=== PATIENT | female | born 1990 | race African-American/Black ===

== ENCOUNTER 2017-12-12 04:27 | Emergency (ER) | payer OTHER ==
[2017-12-12 04:44] VITALS: BP 129/82; PULSE 94; TEMP 97.9; BMI 19.2
[2017-12-12] MEDS ORDERED: LORATADINE 10 MG TABLET PO ONE (04:44)
[2017-12-12] MEDS ORDERED: ALBUTEROL SO4 0.083% IH SOL 2.5 MG/3 ML VIAL.NEB. NEB ONE ×3 (04:44→04:48)
--- NOTE | 2017-12-12 04:44 | PDOC ---
History of Present Illness - General History Source: Patient Exam Limitations: No Limitations - History of Present Illness Initial Comments: 12/12/17 05:05 The patient is a 29 year old female with past medical history of asthma (last attack many years ago) presents to the emergency department with asthma exacerbation. The patient reports for the past 2 days she's been experiencing chest tightness and wheezing, nonradiating, on relieving. The patient states she had a asthma attack many years ago, denies hospitalization or intubation Denies the use of steroid. Denies fever, chills. Denies nausea, vomiting, diarrhea or constipation. LMP: Last week Allergies: Shellfish. Patient is unaware if she had seasonal allergies. Social history: Denies any history of smoking, alcohol use or substance use. <Karen Mendoza - Last Filed: 12/12/17 05:06> - General History Source: Patient <Hector Min - Last Filed: 12/12/17 05:18> - General Stated Complaint: ASTHMA/DIFFICULTY BREATHING Time Seen by Provider: 12/12/17 04:40 Past History <Karen Mendoza - Last Filed: 12/12/17 05:06> - Past Medical History Asthma: Yes (no inhalers in years) COPD: No - Suicide/Smoking/Psychosocial Hx Smoking History: Never smoked <Hector Min - Last Filed: 12/12/17 05:18> - Past Medical History Allergies/Adverse Reactions: Allergies Allergy/AdvReac Type Severity Reaction Status Date / Time shellfish derived Allergy Verified 12/12/17 04:44 Home Medications: Ambulatory Orders Albuterol 0.083% Nebulizer Steffanie [Ventolin 0.083% Nebulizer Soln -] 1 neb NEB Q6H #30 vial 12/12/17 Loratadine [Claritin] 10 mg PO DAILY #30 tablet 12/12/17 Review of Systems - Review of Systems Able to Perform ROS?: Yes Comments:: 12/12/17 05:04 CONSTITUTIONAL: Absent: fever, chills, diaphoresis, generalized weakness, malaise, loss of appetite HEENT: Absent: rhinorrhea, nasal congestion, throat pain, throat swelling, difficulty swallowing, mouth swelling, ear pain, eye pain, visual Changes CARDIOVASCULAR: Absent: chest pain, syncope, palpitations, irregular heart rate, lightheadedness , peripheral edema RESPIRATORY: (+)Chest tightness, wheezing and productive cough. Absent: shortness of breath, dyspnea with exertion, orthopnea, stridor, hemoptysis GASTROINTESTINAL: Absent: abdominal pain, abdominal distension, nausea, vomiting, diarrhea, constipation, melena, hematochezia GENITOURINARY: Absent: dysuria, frequency, urgency, hesitancy, hematuria, flank pain, genital pain MUSCULOSKELETAL: Absent: myalgia, arthralgia, joint swelling SKIN: Absent: rash, itching, pallor HEMATOLOGIC/IMMUNOLOGIC: Absent: easy bleeding, easy bruising, lymphadenopathy, frequent infections ENDOCRINE: Absent: unexplained weight gain, unexplained weight loss, heat intolerance, cold intolerance NEUROLOGIC: Absent: headache, focal weakness or paresthesias, dizziness, unsteady gait, seizure, mental status changes, bladder or bowel incontinence PSYCHIATRIC: Absent: anxiety, depression, suicidal or homicidal ideation, hallucinations. <Karen Mendoza - Last Filed: 12/12/17 05:06> *Physical Exam - Vital Signs Last Vital Signs Temp Pulse Resp BP Pulse Ox 97.9 F 94 H 22 129/82 95 12/12/17 04:43 12/12/17 04:43 12/12/17 04:43 12/12/17 04:43 12/12/17 04:43 - Physical Exam Comments: 12/12/17 05:04 GENERAL: Well developed, well nourished. Awake and alert. No acute distress. HEENT: Normocephalic, atraumatic. PERRLA, EOMI. No conjunctival pallor. Sclera are non- icteric. Moist mucous membranes. Oropharynx is clear. NECK: Supple. Full ROM. No JVD. Carotid pulses 2+ and symmetric, without bruits. No thyromegaly. No lymphadenopathy. CARDIOVASCULAR: Regular rate and rhythm. No murmurs, rubs, or gallops. Distal pulses are 2+ and symmetric. PULMONARY: (+) Scattered wheezing heard at all lung jean. Lungs clear to auscultation bilaterally. No rales or rhonchi. ABDOMINAL: Soft. Non-tender. Non-distended. No rebound or guarding. No organomegaly. Normoactive bowel sounds. MUSCULOSKELETAL Normal range of motion at all joints. No bony deformities or tenderness. No CVA tenderness. EXTREMITIES: No cyanosis. No clubbing. No edema. No calf tenderness. SKIN: Warm and dry. Normal capillary refill. No rashes. No jaundice. NEUROLOGICAL: Alert, awake, appropriate. Cranial nerves 2-12 intact. No deficits to light touch and temperature in face, upper extremities and lower extremities. No motor deficits in the in face, upper extremities and lower extremities. Normoreflexic in the upper and lower extremities. Normal speech. Toes are down- going bilaterally. Gait is normal without ataxia. PSYCHIATRIC: Cooperative. Good eye contact. Appropriate mood and affect. <Karen Mendoza - Last Filed: 12/12/17 05:06> - Vital Signs Last Vital Signs Temp Pulse Resp BP Pulse Ox 97.9 F 94 H 22 129/82 95 12/12/17 04:43 12/12/17 04:43 12/12/17 04:43 12/12/17 04:43 12/12/17 04:43 <Hector Min - Last Filed: 12/12/17 05:18> ED Treatment Course - Medications Given in the ED: ED Medications Discontinued Medications Generic Name Dose Route Start Last Admin Trade Name Freq PRN Reason Stop Dose Admin Albuterol Sulfate 1 amp 12/12/17 04:44 12/12/17 04:53 Ventolin 0.083% Nebulizer Soln - NEB 12/12/17 04:45 1 amp ONCE ONE Administration Albuterol Sulfate 1 amp 12/12/17 04:44 12/12/17 04:53 Ventolin 0.083% Nebulizer Soln - NEB 12/12/17 04:45 1 amp ONCE ONE Administration Loratadine 10 mg 12/12/17 04:44 12/12/17 04:53 Claritin - PO 12/12/17 04:45 10 mg ONCE ONE Administration <Karen Mendoza - Last Filed: 12/12/17 05:06> Medical Decision Making - Medical Decision Making 12/12/17 05:06 Documentation prepared by Karen Mendoza, acting as medical educator for Hector Min DO. <Karen Mendoza - Last Filed: 12/12/17 05:06> - Medical Decision Making 12/12/17 05:17 Dr. Min: The scribe's documentation has been prepared under my direction and personally reviewed by me in its entirery. I confirm that the note above accurately reflects all work, treatment, procedures, and medical decision making performed by me. <Hector Min - Last Filed: 12/12/17 05:18> *DC/Admit/Observation/Transfer <Karen Mendoza - Last Filed: 12/12/17 05:06> - Discharge Dispostion Decision to Admit order: No <Hector Min - Last Filed: 12/12/17 05:18> Diagnosis at time of Disposition: Asthma Qualifiers: Asthma severity: mild Asthma persistence: unspecified Asthma complication type : uncomplicated Qualified Code(s): J45.909 - Unspecified asthma, uncomplicated - Discharge Dispostion Disposition: HOME Condition at time of disposition: Stable - Prescriptions Prescriptions: Albuterol 0.083% Nebulizer Steffanie [Ventolin 0.083% Nebulizer Soln -] 1 neb NEB Q6H #30 vial Loratadine [Claritin] 10 mg PO DAILY #30 tablet - Referrals Referrals: Jhony Mehta MD, MD [Staff Physician] - - Patient Instructions Printed Discharge Instructions: DI for Asthma -- Adult Additional Instructions: Please follow up with your doctor for re-evaluation and to get a nebulizer machine. Take a Claritin Daily to control allergies. REturn if any problems. - Post Discharge Activity Forms/Work/School Notes: Back to Work
[2017-12-12] MEDS ORDERED: LORATADINE 10 MG TABLET ONE (04:49)
== END 2017-12-12 06:04 | disposition home or self-care (01) ==
LOC: JER 04:27
PROC: 3E0F7GC Introduction of Other Therapeutic Substance into Respiratory Tract, Via Natural or Artificial Opening (ICD-10-PCS; principal; 2017-12-12)
PROC: 3E0F7GC Introduction of Other Therapeutic Substance into Respiratory Tract, Via Natural or Artificial Opening (ICD-10-PCS; 2017-12-12)
DX: J45.909 Unspecified asthma, uncomplicated (principal)
CPT/HCPCS: 99281-25

== ENCOUNTER 2019-05-30 22:45 | Emergency (ER) | payer SELFPAY ==
[2019-05-30 22:52] VITALS: BP 118/79; PULSE 85; TEMP 99.4; BMI 20.5
--- NOTE | 2019-05-30 23:21 | PDOC ---
*Physical Exam - Vital Signs Last Vital Signs Temp Pulse Resp BP Pulse Ox 99.4 F 85 19 118/79 100 05/30/19 22:48 05/30/19 22:48 05/30/19 22:48 05/30/19 22:48 05/30/19 22:48 Medical Decision Making - Medical Decision Making 05/30/19 23:21 Patient seen by the advanced practice provider under my direct supervision. Ancillary testing reviewed as necessary. I agree with plan as outlined by the advanced practice provider. Discharge - Discharge Information Problems reviewed: Yes Clinical Impression/Diagnosis: Pharyngitis Qualifiers: Pharyngitis/tonsillitis etiology: unspecified etiology Qualified Code(s): J02.9 - Acute pharyngitis, unspecified Condition: Stable Disposition: HOME - Additional Discharge Information Prescriptions: Amoxicillin - [Amoxicillin 500mg Capsule -] 500 mg PO BID #20 capsule - Follow up/Referral - Patient Discharge Instructions Additional Instructions: Take amoxicillin as prescribed. Salt water garggles. Throw away your toothbrush in 3 days and start using a new toothbrush. No sharing of drinks, utensils or toothbrushes. Take Motrin as directed by chemical instrumentation officer's instructions. Return to ED for worsening fevers, worsening sore throat, chest pain, shortness of breath or any other concerns. - Post Discharge Activity
[2019-05-30] MEDS ORDERED: DEXAMETHASONE LIQUID 0.5 MG/5 ML PO ONE (23:22)
--- NOTE | 2019-05-30 23:28 | PDOC ---
History of Present Illness - General Chief Complaint: Sore Throat Stated Complaint: SORE THROAT Time Seen by Provider: 05/30/19 23:11 History Source: Patient Exam Limitations: No Limitations - History of Present Illness Initial Comments: 05/30/19 23:53 HISTORY OF PRESENT ILLNESS: Is a 28-year-old woman who denies medical history presents to the emergency department with right-sided throat pain for the past 4 days. Patient has been using salt water gargles and taking antipruritic medication at home. Patient reports the pressure has slightly progressed but denies any vocal changes, difficulty swallowing, drooling headaches, ear pain. No recent travel or sick contacts. PAST MEDICAL HISTORY: Denies past medical history SURGICAL HISTORY: Denies ALLERGIES: No known drug allergies REVIEW OF SYSTEMS General/Constitutional: Denies fever or chills. Denies weakness, weight change. HEENT: See HPI Cardiovascular: Denies chest pain or shortness of breath. Respiratory: Denies cough, wheezing, or hemoptysis. Gastrointestinal: Denies nausea, vomiting, diarrhea or constipation. Denies rectal bleeding. Genitourinary: Denies dysuria, frequency, or change in urination. Musculoskeletal: Denies joint or muscle swelling or pain. Denies neck or back pain. Skin and breasts: Denies rash or easy bruising. Neurologic: Denies headache, vertigo, loss of consciousness, or loss of sensation. Psychiatric: Denies depression or anxiety. Endocrine: Denies increased thirst. Denies abnormal weight change. Hematologic/Lymphatic: Denies anemia, easy bleeding, or history of blood clots. Allergic/Immunologic: Denies hives or skin allergy. Denies latex allergy. PHYSICAL EXAM General Appearance: Well-appearing, appropriately dressed. No apparent distress , no intoxication. HEENT: EOMI, PERRLA, normal ENT inspection, normal voice, TMs normal. No conjunctival pallor. No photophobia, scleral icterus. Oropharynx erythematous with 2+ tonsils present. Exudate present to the right tonsil. Uvula is midline. Neck: Supple. Trachea midline. No tenderness, rigidity, carotid bruit, stridor , lymphadenopathy, or thyromegaly. Respiratory/Chest: Lungs CTAB. No shortness of breath, chest tenderness, respiratory distress, accessory muscle use. No crackles, rales, rhonchi, stridor , wheezing, dullness Cardiovascular: RRR. S1, S2. No JVD, murmur, bradycardia, tachycardia. Past History - Past Medical History Allergies/Adverse Reactions: Allergies Allergy/AdvReac Type Severity Reaction Status Date / Time shellfish derived Allergy Verified 05/30/19 23:00 Home Medications: Ambulatory Orders Albuterol 0.083% Nebulizer Steffanie [Ventolin 0.083% Nebulizer Soln -] 1 neb NEB Q6H #30 vial 12/12/17 Loratadine [Claritin] 10 mg PO DAILY #30 tablet 12/12/17 Amoxicillin - [Amoxicillin 500mg Capsule -] 500 mg PO BID #20 capsule 05/30/19 Asthma: Yes (no inhalers in years) COPD: No - Immunization History Immunization Up to Date: Yes - Psycho Social/Smoking Cessation Hx Smoking History: Never smoked Hx Alcohol Use: No (socially) Drug/Substance Use Hx: No *Physical Exam - Vital Signs Last Vital Signs Temp Pulse Resp BP Pulse Ox 99.4 F 85 19 118/79 100 05/30/19 22:48 05/30/19 22:48 05/30/19 22:48 05/30/19 22:48 05/30/19 22:48 Medical Decision Making - Medical Decision Making 05/30/19 23:52 A/P: 28-year-old woman with right-sided throat pain for 4 days +2 tonsillar swelling present Uvula is midline No peritonsillar abscess is noted Right tonsillar exudate is present Tender anterior cervical lymphadenopathy noted Halitosis present Given physical exam high likelihood of streptococcal infection. I will treat patient empirically with amoxicillin 500 twice daily for the next 10 days. Discharge instructions have been provided with the patient was verbalized understanding. Discharge - Discharge Information Problems reviewed: Yes Clinical Impression/Diagnosis: Pharyngitis Qualifiers: Pharyngitis/tonsillitis etiology: unspecified etiology Qualified Code(s): J02.9 - Acute pharyngitis, unspecified Condition: Stable Disposition: HOME - Admission No - Additional Discharge Information Prescriptions: Amoxicillin - [Amoxicillin 500mg Capsule -] 500 mg PO BID #20 capsule - Follow up/Referral - Patient Discharge Instructions Additional Instructions: Take amoxicillin as prescribed. Salt water garggles. Throw away your toothbrush in 3 days and start using a new toothbrush. No sharing of drinks, utensils or toothbrushes. Take Motrin as directed by horseback riding instructor's instructions. Return to ED for worsening fevers, worsening sore throat, chest pain, shortness of breath or any other concerns. - Post Discharge Activity
[2019-05-30] MEDS ORDERED: DEXAMETHASONE SOD PHOSPHATE 10 MG/1 ML VIAL ONE (23:29)
== END 2019-05-30 23:33 | disposition home or self-care (01) ==
LOC: JER 22:45
DX: J02.9 Acute pharyngitis, unspecified (principal); J45.909 Unspecified asthma, uncomplicated; Z91.013 Allergy to seafood
CPT/HCPCS: 99282-25